=== PATIENT | female | born 1940 | race Caucasian/White ===

== ENCOUNTER 2017-11-14 13:31 | Emergency (ER) | payer MEDICARE ==
--- NOTE | 2017-11-14 14:43 | EDM.PDOC ---
ED HPI GENERAL MEDICAL PROBLEM - General Chief Complaint: General Stated Complaint: RIGHT GREAT TOE INFECTION?? Time Seen by Provider: 11/14/17 13:45 Source of Information: Reports: Patient, Family (daughter) History Limitations: Reports: No Limitations - History of Present Illness INITIAL COMMENTS - FREE TEXT/NARRATIVE: 77-year-old female had recent right great toenail removed by . She is a type II diabetic. She and her daughter concerned that she may possibly getting a infection in the great toe. She denies any fever or chills, no nausea or vomiting. He noticed some redness around the toe and mild drainage. She has not been soaking this in any warm water Epson salt or covering the area. She is nontoxic appearing. She has an appointment for lab draws on Thursday at the [facility]. Onset: Gradual Onset Date: 11/13/17 Duration: Day(s): Location: Reports: Lower Extremity, Right (Right great toe) Quality: Reports: Ache Improves with: Reports: None Associated Symptoms: Reports: No Other Symptoms Right 1-Hallux Pain Score (Numeric/FACES): 6 - Related Data Allergies Allergy/AdvReac Type Severity Reaction Status Date / Time codeine Allergy Cannot Verified 11/14/17 14:01 Remember erythromycin base Allergy Rash Verified 11/14/17 14:01 [Erythromycin Base] latex Allergy Rash Verified 11/14/17 14:01 Penicillins Allergy Cannot Verified 11/14/17 14:01 Remember Sulfa (Sulfonamide Allergy Abdominal Verified 11/14/17 14:01 Antibiotics) Pain Dogs & Cats (Pet Dander) Allergy Sneezing Uncoded 07/13/13 14:58 Home Meds: Home Meds Gabapentin [Neurontin] 300 mg PO TID 11/14/17 [History] Glimepiride 1 mg PO WITHBREAKFAST 11/14/17 [History] Levothyroxine 150 mcg PO ACBREAKFAST 11/14/17 [History] Past Medical History HEENT History: Reports: Cataract Cardiovascular History: Reports: Hypertension 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 (See Below) 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 SANITATION MANAGER History: cyst on R ovary Neurological History: Reports: Neuropathy, Diabetic, Neuropathy, Peripheral, Other (See Below) Other Neuro History: Fibromyalgia Endocrine/Metabolic History: Reports: Diabetes, Type II - Infectious Disease History Infectious Disease History: Reports: C-Difficile, Chicken Pox, Measles, Rubella - Past Surgical History GI Surgical History: Reports: Cholecystectomy Social & Family History - Tobacco Use Smoking Status *Q: Former Smoker Used Tobacco, but Quit: Yes Month/Year Tobacco Last Used: 1983 Second Hand Smoke Exposure: Yes - Caffeine Use Caffeine Use: Reports: Coffee, Soda - Recreational Drug Use Recreational Drug Use: No ED ROS GENERAL - Review of Systems Review Of Systems: See Below Constitutional: Denies: Fever, Chills HEENT: Reports: Glasses Respiratory: Reports: No Symptoms Cardiovascular: Reports: No Symptoms Endocrine: Reports: High Glucose GI/Abdominal: Reports: Other (Treatment for C. difficile). Denies: Abdominal Pain : Reports: No Symptoms Musculoskeletal: Reports: No Symptoms Skin: Reports: No Symptoms Psychiatric: Reports: No Symptoms Hematologic/Lymphatic: Reports: No Symptoms Immunologic: Reports: No Symptoms ED EXAM, GENERAL - Physical Exam Exam: See Below Extremities: Other (Right lower extremity examination shows the right great toenail was removed. There is some slough over the nailbed area and slight reaction around the skin. No distinct swelling or redness around the whole toe itself. No evidence of deep infection.) Neurological: Alert, Oriented Psychiatric: Depressed Mood Skin Exam: Warm, Dry, Intact, Normal Color, No Rash Course - Vital Signs Last Recorded V/S: Last Vital Signs Temp 98.2 F 11/14/17 13:54 Pulse 77 11/14/17 13:54 Resp 16 11/14/17 13:54 BP 125/68 11/14/17 13:54 Pulse Ox 94 L 11/14/17 13:54 - Orders/Labs/Meds Orders: Active Orders 24 hr Category Date Time Status C-REACTIVE PROTEIN [CHEM] Stat Lab 11/14/17 14:38 Received CBC WITH AUTO DIFF [HEME] Stat Lab 11/14/17 14:38 Results CULTURE WOUND [RM] Stat Lab 11/14/17 14:10 Received SEDIMENTATION RATE MANUAL [HEME] Stat Lab 11/14/17 14:38 Results Labs: Laboratory Tests 11/14/17 Range/Units 14:38 WBC 8.71 (5.00-10.00) 10^3/uL RBC 4.75 (3.80-5.50) 10^6/uL Hgb 15.6 (12.0-16.0) g/dL Hct 45.6 (37.0-47.0) % MCV 96.0 H (82.0-92.0) fL MCH 32.8 H (27.0-31.0) pg MCHC 34.2 (32.0-36.0) g/dL RDW 13.7 (11.5-14.5) % Plt Count 190 (150-400) 10^3/uL MPV 11.1 H (7.4-10.4) fL Immature Gran % (Auto) 0.2 (0.0-5.0) % Neut % (Auto) 74.0 H (50.0-70.0) % Lymph % (Auto) 17.3 L (20.0-40.0) % [place] % (Auto) 5.3 (2.0-8.0) % Eos % (Auto) 3.0 (1.0-3.0) % Baso % (Auto) 0.2 (0.0-1.0) % Immature Gran # (Auto) 0.02 (0.00-0.50) 10^3/uL Neut # (Auto) 6.44 (2.50-7.00) 10^3/uL Lymph # (Auto) 1.51 (1.00-4.00) 10^3/uL [place] # (Auto) 0.46 (0.10-0.80) 10^3/uL Eos # (Auto) 0.26 (0.10-0.30) 10^3/uL Baso # (Auto) 0.02 (0.00-0.10) 10^3/uL Departure - Departure Time of Disposition: 15:15 Disposition: Home, Self-Care 01 Condition: Fair Clinical Impression: Ingrown nail of great toe of right foot - Discharge Information Instructions: [place] Referrals: Clarence Nguyễn MD [Primary Care Provider] - Forms: ED Department Discharge - My Orders Last 24 Hours: My Active Orders 11/14/17 14:10 CULTURE WOUND [RM] Stat 11/14/17 14:38 C-REACTIVE PROTEIN [CHEM] Stat CBC WITH AUTO DIFF [HEME] Stat SEDIMENTATION RATE MANUAL [HEME] Stat - Assessment/Plan Last 24 Hours: My Active Orders 11/14/17 14:10 CULTURE WOUND [RM] Stat 11/14/17 14:38 C-REACTIVE PROTEIN [CHEM] Stat CBC WITH AUTO DIFF [HEME] Stat SEDIMENTATION RATE MANUAL [HEME] Stat Assessment:: History of ingrown nail right great toe, status post nail removal Type II diabetic Plan: 1. Right great toe was cleaned with gauze and Betadine prep around the nail. 2. Culture was taken for Gram stain, anaerobic, aerobic. 3. Light dressing was applied over the great toe 4. Encourage warm water Epsom salts 3 times a day over the weekend. 5 follow-up with Dr. Rodrigez on Thursday.
== END 2017-11-14 15:30 | disposition home or self-care (01) ==
LOC: KA.ED 13:31
DX: L60.0 Ingrowing nail (principal); I10 Essential (primary) hypertension; E11.40 Type 2 diabetes mellitus with diabetic neuropathy, unspecified; Z88.0 Allergy status to penicillin; Z88.5 Allergy status to narcotic agent; Z91.040 Latex allergy status; Z88.2 Allergy status to sulfonamides; Z87.891 Personal history of nicotine dependence
CPT/HCPCS: 36415; 85025; 85651; 86140; 87070; 87205; 99283

== ENCOUNTER 2018-12-26 13:12 | Emergency (ER) | payer MEDICARE ==
--- NOTE | 2018-12-26 15:11 | CR ---
[id number] RAD/RAD Lumbar Spine 2-3V EXAM: AP AND LATERAL LUMBAR SPINE. INDICATION: Trauma COMPARISON: Correlation is made with the CAT scan of July 13, 2013 FINDINGS: There is no fracture or subluxation There are moderate degenerative changes. 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 IMPRESSION: NO FRACTURE OR SUBLUXATION. Gurjit Larios MD 12/26/18 [id number] Thank you for allowing us to participate in the care of your patient.
--- NOTE | 2018-12-26 15:16 | CR ---
[id number] RAD/RAD Knee Left 1-2V EXAM: RAD Knee Left 1-2V CLINICAL DATA: TRAUMA COMPARISON: NO PREVIOUS SIMILAR EXAM IS AVAILABLE. FINDINGS: No fracture or dislocation is seen. There is no radiopaque foreign body in the soft tissues. There is no air in the soft tissues. There is no cortical thickening or periosteal reaction either. IMPRESSION: NEGATIVE PLAIN FILM EXAM. Gurjit Larios MD 12/26/18 [id number] Thank you for allowing us to participate in the care of your patient.
--- NOTE | 2018-12-26 15:17 | CR ---
[id number] RAD/RAD Pelvis W Left Lateral Hip Exam: RAD Pelvis W Left Lateral Hip Clinical Data: TRAUMA COMPARISON: NO PREVIOUS SIMILAR EXAM IS AVAILABLE FINDINGS: There appears to be an impacted left femoral neck fracture This could be confirmed with MRI or CT if needed IMPRESSION: APPEARANCE OF IMPACTED FRACTURE OF LEFT FEMORAL NECK Gurjit Larios MD 12/26/18 [id number] Thank you for allowing us to participate in the care of your patient.
--- NOTE | 2018-12-26 15:39 | EDM.PDOC ---
ED HPI GENERAL MEDICAL PROBLEM - General Chief Complaint: General Stated Complaint: low back and left leg pain Time Seen by Provider: 12/26/18 13:30 Source of Information: Reports: Patient, Family History Limitations: Reports: No Limitations - History of Present Illness INITIAL COMMENTS - FREE TEXT/NARRATIVE: 78-year-old female presents emergency room brought in by [place] [facility] for evaluation of low back and left hip pain. Patient states she went to the bathroom this morning and was going back to her bedroom when she tripped and fell landing on her left hip. She complained of left hip and low back pain. She was able to get back to her bedroom. She states that she is supposed to use a walker to help her for her balance but only uses it intermittently. She has a history of chronic low back pain with spinal cord stimulator. She is taken several falls in the past. Onset: Today Onset Date: 12/26/18 Onset Time: 09:30 Duration: Hour(s):, Constant Location: Reports: Back, Lower Extremity, Left Quality: Reports: Ache Severity: Moderate Improves with: Reports: Rest Worsens with: Reports: None, Movement Associated Symptoms: Reports: No Other Symptoms Left Leg Pain Score (Numeric/FACES): 5 - Related Data Allergies Allergy/AdvReac Type Severity Reaction Status Date / Time codeine Allergy Cannot Verified 12/26/18 13:30 Remember erythromycin base Allergy Rash Verified 12/26/18 13:30 [Erythromycin Base] latex Allergy Rash Verified 12/26/18 13:30 Penicillins Allergy Cannot Verified 12/26/18 13:30 Remember Sulfa (Sulfonamide Allergy Abdominal Verified 12/26/18 13:30 Antibiotics) Pain Dogs & Cats (Pet Dander) Allergy Sneezing Uncoded 12/26/18 13:30 Home Meds: Home Meds Gabapentin [Neurontin] 300 mg PO TID 11/14/17 [History] Acetaminophen [Acetaminophen Extra Strength] 500 - 1,000 mg PO Q4H PRN 01/29/18 [History] Aspirin [Halfprin] 81 mg PO DAILY 01/29/18 [History] Glimepiride [Amaryl] 2 mg PO DAILY 01/29/18 [History] Sertraline [Zoloft] 50 mg PO DAILY 01/29/18 [History] Levothyroxine [Synthroid] 100 mcg PO ACBREAKFAST 12/26/18 [History] Past Medical History HEENT History: Reports: Cataract, Impaired Vision Cardiovascular History: Reports: CAD, High Cholesterol, Hypertension Respiratory History: Reports: None Gastrointestinal History: Reports: GERD Genitourinary History: Reports: None 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 (See Below) 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 MACHINE 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 History: cyst on R ovary Musculoskeletal History: Reports: Arthritis Neurological History: Reports: Neuropathy, Diabetic, Neuropathy, Peripheral, Other (See Below) Other Neuro History: Fibromyalgia Psychiatric History: Reports: Anxiety, Depression Endocrine/Metabolic History: Reports: Diabetes, Type II, Hypothyroidism, Obesity /BMI 30+ Hematologic History: Reports: Anesthesia Reaction - Infectious Disease History Infectious Disease History: Reports: C-Difficile, Chicken Pox, Measles, Mumps, Rubella - Past Surgical History Head Surgeries/Procedures: Reports: None HEENT Surgical History: Reports: Adenoidectomy, Cataract Surgery, Oral Surgery, Tonsillectomy Cardiovascular Surgical History: Reports: None Respiratory Surgical History: Reports: None GI Surgical History: Reports: Cholecystectomy, Colonoscopy Female Surgical History: Reports: Hysterectomy Endocrine Surgical History: Reports: None Neurological Surgical History: Reports: None Musculoskeletal Surgical History: Reports: None Dermatological Surgical History: Reports: None Social & Family History - Family History Family Medical History: Noncontributory - Tobacco Use Smoking Status *Q: Former Smoker Used Tobacco, but Quit: Yes Month/Year Tobacco Last Used: quit 1983 - Caffeine Use Caffeine Use: Reports: Coffee, Soda - Recreational Drug Use Recreational Drug Use: No Review of Systems - Review of Systems Review Of Systems: See Below Constitutional: Reports: No Symptoms Eyes: Reports: No Symptoms Ears: Reports: Dizziness (Chronic) Nose: Reports: No Symptoms Mouth/Throat: Reports: No Symptoms Respiratory: Reports: Shortness of Breath (Chronic shortness of breath with history of COPD) Cardiovascular: Reports: No Symptoms GI/Abdominal: Reports: No Symptoms Genitourinary: Reports: No Symptoms Musculoskeletal: Reports: Back Pain (Chronic low back pain with spinal cord stimulator), Joint Pain (Left hip) Skin: Reports: No Symptoms Neurological: Reports: Dizziness Psychiatric: Reports: Depression ED EXAM, GENERAL - Physical Exam Exam: See Below Exam Limited By: No Limitations General Appearance: Alert, WD/WN, No Apparent Distress Eye Exam: Bilateral Eye: EOMI Ears: Normal Canal Nose: Normal Inspection Throat/Mouth: Normal Voice, No Airway Compromise Head: Atraumatic Neck: Normal Inspection, Supple Respiratory/Chest: No Respiratory Distress, Lungs Clear Cardiovascular: Regular Rate, Rhythm GI/Abdominal: Soft, Non-Tender Back Exam: Normal Inspection. No: Paraspinal Tenderness, Vertebral Tenderness Extremities: Normal Inspection, Other (Mild tenderness over the left knee anteriorly. She is able extend the knee. No deficit in the quadriceps or patellar tendon noted. Knee stable to varus stress. She has a positive will sign left hip there is no shortening or external rotation. Pulses are 1+ distally intact sensation to light touch. Right hip exam shows normal hip range of motion with no pain or discomfort knee and ankle motion are normal) Neurological: Alert, Oriented, No Motor/Sensory Deficits Psychiatric: Depressed Mood Skin Exam: Warm, Dry, Intact, Normal Color, No Rash Lymphatic: No Adenopathy Course - Vital Signs Last Recorded V/S: Last Vital Signs Temp 96.9 F 12/26/18 13:17 Pulse 69 12/26/18 15:15 Resp 20 12/26/18 15:15 BP 168/76 H 12/26/18 15:15 Pulse Ox 93 L 12/26/18 15:15 - Orders/Labs/Meds Orders: Active Orders 24 hr Category Date Time Status Lynch Catheter Insertion [Insert Urinary Catheter] [OM. Care 12/26/18 17:15 Ordered PC] Q24H Urinary Catheter Assessment [RC] ASDIRECTED Care 12/26/18 17:05 Active Sodium Chloride 0.9% [Normal Saline] 1,000 ml Med 12/26/18 16:30 Active IV ASDIRECTED Medication Orders Sodium Chloride (Normal Saline) 1,000 mls @ 50 mls/hr IV ASDIRECTED ALY Last Admin: 12/26/18 17:08 Dose: 50 mls/hr Meds: Medications Generic Name Dose Route Start Last Admin Trade Name Freq PRN Reason Stop Dose Admin Sodium Chloride 1,000 mls @ 50 mls/hr 12/26/18 16:30 12/26/18 17:08 Normal Saline IV 50 mls/hr ASDIRECTED ALY Administration Discontinued Medications Generic Name Dose Route Start Last Admin Trade Name Freq PRN Reason Stop Dose Admin Morphine Sulfate 2 mg 12/26/18 16:23 12/26/18 17:09 Morphine IVPUSH 12/26/18 16:24 2 mg ONETIME ONE Administration Ondansetron HCl 4 mg 12/26/18 16:24 12/26/18 16:45 Zofran IVPUSH 12/26/18 16:25 4 mg ONETIME ONE Administration - Radiology Interpretation Free Text/Narrative:: X-ray pelvis with left lateral hip Findings: There appears to be an impacted left femoral neck fracture. Sclerae be confirmed with MRI or CT if needed Impression: Appearance of an impacted fracture left femoral neck. X-ray 2 views left knee Findings: No fracture dislocation is seen is no radiopaque foreign body in the soft tissues there is no air in the soft tissues is no cortical thickening or periosteal reaction. 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 Impression: No fracture or subluxation CT left hip without IV contrast Findings: Acute impacted left femoral neck fracture seen There is minimal valgus angulation Impression: Acute impacted subcapital left hip fracture Departure - Departure Time of Disposition: 18:30 Disposition: DC/Tfer to [facility] 02 Condition: Good Clinical Impression: Subcapital fracture of left hip Qualifiers: Encounter type: initial encounter Fracture type: closed Qualified Code(s): S72.012A - Unspecified intracapsular fracture of left femur, initial encounter for closed fracture - Discharge Information Instructions: Hip Fracture Referrals: Arthur Louie NP [Primary Care Provider] - Forms: ED Department Discharge, Interfacility Transfer EMTMICHEL - My Orders Last 24 Hours: My Active Orders 12/26/18 16:30 Sodium Chloride 0.9% [Normal Saline] 1,000 ml IV ASDIRECTED 12/26/18 17:05 Urinary Catheter Assessment [RC] ASDIRECTED 12/26/18 17:15 Lynch Catheter Insertion [Insert Urinary Catheter] [OM.PC] Q24H - Assessment/Plan Last 24 Hours: My Active Orders 12/26/18 16:30 Sodium Chloride 0.9% [Normal Saline] 1,000 ml IV ASDIRECTED 12/26/18 17:05 Urinary Catheter Assessment [RC] ASDIRECTED 12/26/18 17:15 Lynch Catheter Insertion [Insert Urinary Catheter] [OM.PC] Q24H Assessment:: 1. Impacted femoral neck fracture left 2. Degenerative changes lumbar spine 3. left knee contusion Plan: 1. Left subcapital hip fracture 2. Transfer to [facility]
--- NOTE | 2018-12-26 15:59 | CT ---
[id number] CT/CT Hip Left WO IV Exam: CT Hip Left WO IV Clinical Data: LEFT HIP FRACTURE COMPARISON: CORRELATION IS MADE WITH THE RECENT PLAIN FILMS FINDINGS: An acute impacted left femoral neck fracture is seen This is identified on image [id number], series 5 There is minimal valgus angulation IMPRESSION: ACUTE IMPACTED SUBCAPITAL LEFT HIP FRACTURE Gurjit Larios MD 12/26/18 [id number] Thank you for allowing us to participate in the care of your patient.
[2018-12-26] MEDS: Ondansetron 4 MG/2 ML SDV IVPUSH ONE (16:45)
[2018-12-26] MEDS: Sodium Chloride 0.9% 1,000 ML IV SCH (17:08)
[2018-12-26] MEDS: Morphine 2 MG/ML Syringe IVPUSH ONE (17:09)
== END 2018-12-26 17:30 ==
LOC: KA.ED 13:12
DX: S72.012A Unspecified intracapsular fracture of left femur, initial encounter for closed fracture (principal); I10 Essential (primary) hypertension; E78.00 Pure hypercholesterolemia, unspecified; E11.9 Type 2 diabetes mellitus without complications; E03.9 Hypothyroidism, unspecified; F41.9 Anxiety disorder, unspecified; F32.9 Major depressive disorder, single episode, unspecified; Z88.5 Allergy status to narcotic agent; Z88.1 Allergy status to other antibiotic agents; Z91.040 Latex allergy status; Z88.0 Allergy status to penicillin; Z88.2 Allergy status to sulfonamides; Z91.048 Other nonmedicinal substance allergy status; Z79.82 Long term (current) use of aspirin; Z79.899 Other long term (current) drug therapy; Z87.891 Personal history of nicotine dependence; W01.0XXA Fall on same level from slipping, tripping and stumbling without subsequent striking against object, initial encounter; Y92.002 Bathroom of unspecified non-institutional (private) residence as the place of occurrence of the external cause
CPT/HCPCS: 51702; 72100; 73560-LT; 73700-LT; 99284; 99284-25; J2270; J2405; J7030

== ENCOUNTER 2019-10-31 18:30 | Emergency (ER) | payer MEDICARE ==
--- NOTE | 2019-10-31 18:50 | EDM.PDOC ---
ED HPI GENERAL MEDICAL PROBLEM - General Chief Complaint: Respiratory Problem Stated Complaint: NOT FEELING WELL Time Seen by Provider: 10/31/19 18:30 Source of Information: Reports: Patient, EMS History Limitations: Reports: No Limitations - History of Present Illness INITIAL COMMENTS - FREE TEXT/NARRATIVE: Has been sequestered at home the majority of the time. Presented to the [facility] in [place] on the 26 October for her annual influenza immunization. She was only at the clinic with no other exposure. She awoke Thursday morning 27 October experiencing pressure in the lower abdomen loose stools with some cough. 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 Stating it does not flareup as much now as it used to. She states she has had low-grade fever running from 99 5 up to 100 but not above that. She has shortness of breath which she states is chronic and not worse than her usual issue although may be a little more cough. She denies chest pain She states she is able to taste but "everything tastes like she it" she states her smell is intact. She denies any body aches states she has normal urine output, may be a little less than usual. Denying any edema or difficulty with ambulation. Stated she called the clinic, [facility], late today, being advised to be seen in the emergency department. Onset: Gradual Onset Date: 10/28/19 Onset Time: 07:00 Duration: Day(s): Location: Reports: Chest, Abdomen Quality: Reports: Pressure Severity: Moderate Improves with: Reports: None Worsens with: Reports: Eating Associated Symptoms: Reports: Cough, Shortness of Breath (Chronic, not worsened.). Denies: Chest Pain - Related Data Allergies Allergy/AdvReac Type Severity Reaction Status Date / Time codeine Allergy Cannot Verified 10/31/19 18:51 Remember erythromycin base Allergy Rash Verified 10/31/19 18:51 [Erythromycin Base] latex Allergy Rash Verified 10/31/19 18:51 Penicillins Allergy Cannot Verified 10/31/19 18:51 Remember Sulfa (Sulfonamide Allergy Abdominal Verified 10/31/19 18:51 Antibiotics) Pain Dogs & Cats (Pet Dander) Allergy Sneezing Uncoded 10/31/19 18:51 Home Meds: Home Meds Gabapentin [Neurontin] 300 mg PO TID 11/14/17 [History] Acetaminophen [Acetaminophen Extra Strength] 500 - 1,000 mg PO Q4H PRN 01/29/18 [History] Aspirin [Halfprin] 81 mg PO DAILY 01/29/18 [History] Glimepiride [Amaryl] 2 mg PO DAILY 01/29/18 [History] Sertraline [Zoloft] 50 mg PO DAILY 01/29/18 [History] Levothyroxine [Synthroid] 100 mcg PO ACBREAKFAST 12/26/18 [History] Past Medical History HEENT History: Reports: Cataract, Impaired Vision Cardiovascular History: Reports: CAD, High Cholesterol, Hypertension Respiratory History: Reports: None Gastrointestinal History: Reports: GERD Genitourinary History: Reports: None [employer] History: Reports: Other (See Below) Other [employer]OR History: cyst on R ovary Musculoskeletal History: Reports: Arthritis Neurological History: Reports: Neuropathy, Diabetic, Neuropathy, Peripheral, Other (See Below) Other Neuro History: Fibromyalgia Psychiatric History: Reports: Anxiety, Depression Endocrine/Metabolic History: Reports: Diabetes, Type II, Hypothyroidism, Obesity/BMI 30+ Hematologic History: Reports: Anesthesia Reaction - Infectious Disease History Infectious Disease History: Reports: C-Difficile, Chicken Pox, Measles, Mumps, Rubella - Past Surgical History Head Surgeries/Procedures: Reports: None HEENT Surgical History: Reports: Adenoidectomy, Cataract Surgery, Oral Surgery, Tonsillectomy Cardiovascular Surgical History: Reports: None Respiratory Surgical History: Reports: None GI Surgical History: Reports: Cholecystectomy, Colonoscopy Female Surgical History: Reports: Hysterectomy Endocrine Surgical History: Reports: None Neurological Surgical History: Reports: None Musculoskeletal Surgical History: Reports: None Dermatological Surgical History: Reports: None Social & Family History - Family History Family Medical History: Noncontributory - Caffeine Use Caffeine Use: Reports: Coffee, Soda ED ROS GENERAL - Review of Systems Review Of Systems: Comprehensive ROS is negative, except as noted in HPI. ED EXAM, GENERAL - Physical Exam Exam: See Below Free Text/Narrative:: Alert oriented x3 speaking in full sentences with no respiratory distress. There is no cyanosis nor pallor noted. Raub moist mucous membranes Neck soft supple no lymphadenopathy no JVD I do not appreciate carotid bruit. Thorax is fine rhonchi crackles on the right side with no wheezes no crackles superiorly nor to the left. Cardiac is S1 is 2 I do not appreciate any murmur. Abdomen is soft rotund, no hepatosplenomegaly. There is mild pressure over the urinary bladder. rectal is deferred. There is +2 edema to the lower extremities. No pain is complained of, no shortness of breath and no chest pain to motion or palpation, no extremity pain. Course - Vital Signs Last Recorded V/S: Last Vital Signs Temp 37.0 C 10/31/19 18:46 Pulse 78 10/31/19 20:08 Resp 16 10/31/19 20:08 BP 159/71 H 10/31/19 20:08 Pulse Ox 92 L 10/31/19 20:08 - Orders/Labs/Meds Orders: Active Orders 24 hr Category Date Time Status Chest 2V [CR] Stat Exams 10/31/19 18:51 Stop Req CULTURE BLOOD [BC] Stat Lab 10/31/19 19:00 Received CULTURE BLOOD [BC] Stat Lab 10/31/19 19:15 Received Blood Culture x2 Reflex Set [OM.PC] Stat Oth 10/31/19 18:53 Ordered Labs: Laboratory Tests 10/31/19 10/31/19 10/31/19 Range/Units 19:00 19:00 19:00 WBC 11.62 H (5.00-10.00) 10^3/uL RBC 5.03 (3.80-5.50) 10^6/uL Hgb 15.7 D (12.0-16.0) g/dL Hct 47.3 H (37.0-47.0) % MCV 94.0 H D (82.0-92.0) fL MCH 31.2 H (27.0-31.0) pg MCHC 33.2 (32.0-36.0) g/dL RDW 13.0 (11.5-14.5) % Plt Count 219 (150-400) 10^3/uL MPV 10.5 H (7.4-10.4) fL Immature Gran % (Auto) 0.2 (0.0-5.0) % Neut % (Auto) 84.0 H (50.0-70.0) % Lymph % (Auto) 7.0 L (20.0-40.0) % [place] % (Auto) 7.0 (2.0-8.0) % Eos % (Auto) 1.5 (1.0-3.0) % Baso % (Auto) 0.3 (0.0-1.0) % Neut # (Auto) 9.78 H (2.50-7.00) 10^3/uL Lymph # (Auto) 0.81 L (1.00-4.00) 10^3/uL [place] # (Auto) 0.81 H (0.10-0.80) 10^3/uL Eos # (Auto) 0.17 (0.10-0.30) 10^3/uL Baso # (Auto) 0.03 (0.00-0.10) 10^3/uL Immature Gran # (Auto) 0.02 (0.00-0.50) 10^3/uL Sodium 137 (136-145) mmol/L Potassium 3.3 (3.3-5.3) mmol/L Chloride 99 (98-115) mmol/L Carbon Dioxide 26.7 (21.0-32.0) mmol/L Anion Gap 14.6 (5-15) mmol/L BUN 11 (6-25) mg/dL Creatinine 0.85 (0.51-1.17) mg/dL Est Cr Clr Drug Dosing 45.12 mL/min Estimated GFR (MDRD) > 60 mL/min Glucose 144 H (75 - 99) mg/dL Lactic Acid 1.6 (0.4-2.0) mmol/L Calcium 8.1 L (8.7-10.3) mg/dL Total Bilirubin 0.5 (0.2-1.0) mg/dL AST 25 (15-37) U/L ALT 26 (12-78) U/L Alkaline Phosphatase 50 (46-116) IU/L Total Protein 7.5 (6.4-8.2) g/dL Albumin 3.18 (3.00-4.80) g/dL - Radiology Interpretation Free Text/Narrative:: Stranding in the right base with mild blunting costophrenic angles. Over read pending - Re-Assessments/Exams Free Text/Narrative Re-Assessment/Exam: 10/31/19 20:55 Discuss the aspects of the sinus drainage if not improving, or worsening, needs to be treated with antibiotic. We offered COVID 19 testing which she declines. She states that she has been eating Meals on Wheels daily and is anxious to be discharged home at this time so she can have something to eat. This story is somewhat conflicting from what she originally said as well as her daughter who says she has no intake and is hesitant to take her home. When Marian he is told of her daughter's concern, she states "she is just bossy", I am ready to go home. When again discussing COVID-19 she questions why the immediate test is not being run, to which I replied that is only for people having procedures or being admitted. She replies that they had been told, it would be a quick 25-minute test done here. We again discuss treatment options which she declines as well as further testing and is anxious to be discharged home and will follow-up with her clinic as discussed. Departure - Departure Time of Disposition: :19 Disposition: Home, Self-Care 01 Condition: Good Clinical Impression: Malaise, Clostridium difficile carrier - Discharge Information *PRESCRIPTION DRUG MONITORING PROGRAM REVIEWED*: Not Applicable *COPY OF PRESCRIPTION DRUG MONITORING REPORT IN PATIENT JOHNNY: Not Applicable Instructions: Weakness, [id number] Referrals: PCP,Unknown [Primary Care Provider] - Forms: ED Department Discharge Additional Instructions: A lengthy discussion on the opportunity for antibiotic for sinus drainage which she declines secondary of increased risk of a C. difficile flare-up with antibiotic. She declines COVID-19 testing which I feel is appropriate as she has had no known exposure. You need to continue all your medications as directed. You need to call your clinic Thursday or to advise them of how you are feeling. The likelihood of the sinus drainage/infection resolving is equal to that of it getting worse at which time you would need to have antibiotic therapy. Your diet should consist of easy to digest foods that you have been successful with in the past. If you do not feel that this is stabilizing contact the clinic sooner than later. This is possible that it is your body reacting with an immune response to the influenza immunization you received . Please limit your exposures and travel until you are feeling better. Sepsis Event Note (ED) - Focused Exam Vital Signs: Vital Signs Temp Pulse Resp BP Pulse Ox 10/31/19 20:08 78 16 159/71 H 92 L 10/31/19 19:04 83 16 160/86 H 90 L 10/31/19 18:46 37.0 C 82 16 154/78 H 91 L 10/31/19 18:45 80 18 155/108 H 90 L - Problem List & Annotations (1) Malaise SNOMED Code(s): 067781752 Code(s): R53.81 - OTHER MALAISE Status: Acute Priority: High Current Visit: Yes (2) Clostridium difficile carrier SNOMED Code(s): 13030878 Code(s): Z22.1 - CARRIER OF OTHER INTESTINAL INFECTIOUS DISEASES Status: Chronic Priority: Medium Current Visit: Yes (3) Loose stools SNOMED Code(s): 689074807 Code(s): R19.5 - OTHER FECAL ABNORMALITIES Status: Chronic Priority: Medium Current Visit: Yes (4) Cough SNOMED Code(s): 63988526 Code(s): R05 - COUGH Status: Acute Priority: High Current Visit: Yes (5) Sinus drainage SNOMED Code(s): 487079055 Code(s): J34.89 - OTHER SPECIFIED DISORDERS OF NOSE AND NASAL SINUSES Status: Acute Priority: Medium Current Visit: Yes - Problem List Review Problem List Initiated/Reviewed/Updated: Yes - My Orders Last 24 Hours: My Active Orders 10/31/19 18:51 Chest 2V [CR] Stat 10/31/19 18:53 Blood Culture x2 Reflex Set [OM.PC] Stat 10/31/19 19:00 CULTURE BLOOD [BC] Stat 10/31/19 19:15 CULTURE BLOOD [BC] Stat - Assessment/Plan Last 24 Hours: My Active Orders 10/31/19 18:51 Chest 2V [CR] Stat 10/31/19 18:53 Blood Culture x2 Reflex Set [OM.PC] Stat 10/31/19 19:00 CULTURE BLOOD [BC] Stat 10/31/19 19:15 CULTURE BLOOD [BC] Stat Plan: A lengthy discussion on the opportunity for antibiotic for sinus drainage which she declines secondary of increased risk of a C. difficile flare-up with antibiotic. She declines COVID-19 testing which I feel is appropriate as she has had no known exposure. You need to continue all your medications as directed. You need to call your clinic Thursday or to advise them of how you are feeling. The likelihood of the sinus drainage/infection resolving is equal to that of it getting worse at which time you would need to have antibiotic therapy. Your diet should consist of easy to digest foods that you have been successful with in the past. If you do not feel that this is stabilizing contact the clinic sooner than later. This is possible that it is your body reacting with an immune response to the influenza immunization you received . Please limit your exposures and travel until you are feeling better.
[2019-10-31 19:50] LABS: ANION GAP 14.6 mmol/L (5-15); CHLORIDE,CL 99 mmol/L (98-115); SODIUM,NA 137 mmol/L (136-145)
--- NOTE | 2019-10-31 19:52 | CR ---
[id number] RAD/RAD Chest PA or AP 1V EXAM: SINGLE VIEW CHEST. INDICATION: COUGH COMPARISON: CORRELATION IS MADE WITH JULY 19, 2010 FINDINGS: The lungs are clear The spinal stimulator is seen The cardiac silhouette is unchanged IMPRESSION: NO PNEUMONIA OR EDEMA Gurjit Larios MD 10/31/191950 Thank you for allowing us to participate in the care of your patient.
== END 2019-10-31 20:28 | disposition home or self-care (01) ==
LOC: KA.ED 18:30
DX: Z22.1 Carrier of other intestinal infectious diseases (principal); R53.81 Other malaise; I10 Essential (primary) hypertension; E11.42 Type 2 diabetes mellitus with diabetic polyneuropathy; I25.10 Atherosclerotic heart disease of native coronary artery without angina pectoris; F41.9 Anxiety disorder, unspecified; F32.9 Major depressive disorder, single episode, unspecified; E66.9 Obesity, unspecified; Z90.49 Acquired absence of other specified parts of digestive tract; Z90.710 Acquired absence of both cervix and uterus; Z88.2 Allergy status to sulfonamides; Z88.0 Allergy status to penicillin; Z88.1 Allergy status to other antibiotic agents; Z88.5 Allergy status to narcotic agent; Z91.09 Other allergy status, other than to drugs and biological substances; Z79.82 Long term (current) use of aspirin; Z79.899 Other long term (current) drug therapy
CPT/HCPCS: 36415; 71045; 80053; 83605; 85025; 87040; 99284; 99284-25

== ENCOUNTER 2022-08-26 07:31 | Inpatient (IN) | payer MEDICARE ==
[2022-08-26] MEDS ORDERED: Acetaminophen 500 MG Tab PO PRN (10:21)
[2022-08-26] MEDS ORDERED: Losartan 25 MG Tab PO PRN (10:21)
[2022-08-26] MEDS ORDERED: Potassium Chloride 10 MEQ Tab.ER PO ONE (13:00)
[2022-08-26] MEDS ORDERED: Magnesium Oxide 500 MG Tab PO ONE (16:00)
[2022-08-26] MEDS: Melatonin 3 MG Tab PO SCH (21:25)
[2022-08-26] MEDS: Magnesium Oxide 500 MG Tab PO SCH (21:25)
[2022-08-26] MEDS: Gabapentin 300 MG Cap PO SCH (21:25)
[2022-08-26] MEDS: Losartan 25 MG Tab PO SCH (21:28)
[2022-08-27] MEDS: Levothyroxine 100 MCG Tab PO SCH ×2 (05:58→06:41)
[2022-08-27] MEDS: Levothyroxine 25 MCG Tab PO SCH ×2 (05:59→06:41)
[2022-08-27] MEDS: Aspirin 81 MG Tab.EC PO SCH (08:07)
[2022-08-27] MEDS: Glimepiride 2 MG Tab PO SCH (08:07)
[2022-08-27] MEDS: Magnesium Oxide 500 MG Tab PO SCH ×2 (08:07→20:32)
[2022-08-27] MEDS: Sertraline 50 MG Tab PO SCH (08:07)
[2022-08-27] MEDS: Losartan 25 MG Tab PO SCH (20:31)
[2022-08-27] MEDS: Melatonin 3 MG Tab PO SCH (20:32)
[2022-08-27] MEDS: Gabapentin 300 MG Cap PO SCH (20:33)
[2022-08-28] MEDS: Levothyroxine 25 MCG Tab PO SCH (06:30)
[2022-08-28] MEDS: Levothyroxine 100 MCG Tab PO SCH (06:30)
[2022-08-28] MEDS: Glimepiride 2 MG Tab PO SCH (08:02)
[2022-08-28] MEDS: Magnesium Oxide 500 MG Tab PO SCH ×2 (08:02→21:20)
[2022-08-28] MEDS: Sertraline 50 MG Tab PO SCH (08:03)
[2022-08-28] MEDS: Aspirin 81 MG Tab.EC PO SCH (08:03)
[2022-08-28] MEDS ORDERED: Sennosides/Docusate Sodium 50-8.6 MG Tab PO PRN (09:11)
[2022-08-28] MEDS ORDERED: Losartan 25 MG Tab PO SCH (21:00)
[2022-08-28] MEDS: Gabapentin 300 MG Cap PO SCH (21:20)
[2022-08-28] MEDS: Melatonin 3 MG Tab PO SCH (21:20)
[2022-08-29] MEDS: Levothyroxine 25 MCG Tab PO SCH ×2 (05:41→06:30)
[2022-08-29] MEDS: Levothyroxine 100 MCG Tab PO SCH ×2 (05:41→06:30)
[2022-08-29 07:20] LABS: BASOPHILS ABSOLUTE AUTO 0.02 10^3/uL (0.00-0.10); BASOPHILS PERCENT AUTO 0.2 % (0.0-1.0); EOSINOPHILS ABSOLUTE AUTO 0.33 10^3/uL (0.10-0.30); EOSINOPHILS PERCENT AUTO 3.9 % (1.0-3.0); HEMATOCRIT 40.9 % (37.0-47.0); HEMOGLOBIN 13.4 g/dL (12.0-16.0); IMMATURE GRAN ABSOLUTE AUTO 0.01 10^3/uL (0.00-0.50); IMMATURE GRAN PERCENT AUTO 0.1 % (0.0-5.0); LYMPHOCYTES ABSOLUTE AUTO 2.26 10^3/uL (1.00-4.00); LYMPHOCYTES PERCENT AUTO 26.7 % (20.0-40.0); MEAN CORPUSCULAR HEMOGLOBIN 31.2 pg (27.0-31.0); MEAN CORPUSCULAR HGB CONC 32.8 g/dL (32.0-36.0); MEAN CORPUSCULAR VOLUME 95.3 fL (82.0-92.0); MONOCYTES ABSOLUTE AUTO 0.79 10^3/uL (0.10-0.80); MONOCYTES PERCENT AUTO 9.3 % (2.0-8.0); NEUTROPHILS ABSOLUTE AUTO 5.07 10^3/uL (2.50-7.00); NEUTROPHILS PERCENT AUTO 59.8 % (50.0-70.0); PLATELET COUNT,PLT 223 10^3/uL (150-400); RED BLOOD CELL COUNT 4.29 10^6/uL (3.80-5.50); RED CELL DISTRIBUTION WIDTH 13.2 % (11.5-14.5); WHITE BLOOD CELL COUNT,WBC 8.48 10^3/uL (5.00-10.00)
[2022-08-29 07:34] LABS: HEMOGLOBIN A1C 6.6 % (4.3-5.7)
[2022-08-29 07:41] LABS: ALBUMIN 2.29 g/dL (3.40-5.00); ANION GAP 9.8 mmol/L (5-15); BILIRUBIN TOTAL 0.4 mg/dL (0.2-1.0); CALCIUM 8.6 mg/dL (8.7-10.3); CARBON DIOXIDE,CO2 32.3 mmol/L (21.0-32.0); CREATININE 1.1 mg/dL (0.51-1.17); EST CRCL DRUG DOSING (CG) 40.46 mL/min; POTASSIUM,K 4.1 mmol/L (3.5-5.1); PROTEIN TOTAL,TP 5.7 g/dL (6.4-8.2)
[2022-08-29] MEDS: Sertraline 50 MG Tab PO SCH (08:21)
[2022-08-29] MEDS: Magnesium Oxide 500 MG Tab PO SCH (08:21)
[2022-08-29] MEDS: Aspirin 81 MG Tab.EC PO SCH (08:21)
[2022-08-29] MEDS: Glimepiride 2 MG Tab PO SCH (08:21)
[2022-08-30] MEDS ORDERED: Magnesium Oxide 500 MG Tab PO SCH (09:00)
== END 2022-08-29 13:05 | disposition home health service (06) | DRG 948 ==
LOC: KA.MS 10:21
PROVIDERS: ADMIT Nurse Practitioner Family; ATTEND Family Medicine
DX: R53.81 Other malaise (principal); R29.6 Repeated falls; E87.6 Hypokalemia; E83.42 Hypomagnesemia; I10 Essential (primary) hypertension; G31.9 Degenerative disease of nervous system, unspecified; R82.71 Bacteriuria; N83.209 Unspecified ovarian cyst, unspecified side; E78.5 Hyperlipidemia, unspecified; E03.9 Hypothyroidism, unspecified; M81.0 Age-related osteoporosis without current pathological fracture; F41.9 Anxiety disorder, unspecified; F32.A Depression, unspecified; Z96.649 Presence of unspecified artificial hip joint; E21.3 Hyperparathyroidism, unspecified; Z88.5 Allergy status to narcotic agent; Z88.0 Allergy status to penicillin; Z88.2 Allergy status to sulfonamides; Z91.09 Other allergy status, other than to drugs and biological substances; Z79.82 Long term (current) use of aspirin; I25.10 Atherosclerotic heart disease of native coronary artery without angina pectoris; Z79.899 Other long term (current) drug therapy; Z98.49 Cataract extraction status, unspecified eye; Z90.710 Acquired absence of both cervix and uterus; Z68.26 Body mass index [BMI] 26.0-26.9, adult
CPT/HCPCS: 36415; 80053; 83036; 83735; 85025; 97110-GO; 97110-GP; 97535-GO; A9270-GY

== ENCOUNTER 2023-01-07 16:15 | Emergency (ER) | payer MEDICAID, MEDICARE ==
[2023-01-07] MEDS ORDERED: Ondansetron 4 MG/2 ML SDV IVPUSH ONE (16:36)
[2023-01-07] MEDS ORDERED: Sodium Chloride 0.9% 1,000 ML IV ONE (16:36)
[2023-01-07 16:53] LABS: BASOPHILS ABSOLUTE AUTO 0.02 10^3/uL (0.00-0.10); BASOPHILS PERCENT AUTO 0.1 % (0.0-1.0); EOSINOPHILS ABSOLUTE AUTO 0.18 10^3/uL (0.10-0.30); EOSINOPHILS PERCENT AUTO 1.3 % (1.0-3.0); HEMATOCRIT 50.8 % (37.0-47.0); HEMOGLOBIN 16.8 g/dL (12.0-16.0); IMMATURE GRAN ABSOLUTE AUTO 0.05 10^3/uL (0.00-0.50); IMMATURE GRAN PERCENT AUTO 0.4 % (0.0-5.0); LYMPHOCYTES PERCENT AUTO 8.6 % (20.0-40.0); MEAN CORPUSCULAR HEMOGLOBIN 31.2 pg (27.0-31.0); MEAN CORPUSCULAR HGB CONC 33.1 g/dL (32.0-36.0); MEAN CORPUSCULAR VOLUME 94.2 fL (82.0-92.0); MEAN PLATELET VOLUME 11.2 fL (7.4-10.4); MONOCYTES ABSOLUTE AUTO 0.97 10^3/uL (0.10-0.80); NEUTROPHILS PERCENT AUTO 82.6 % (50.0-70.0); PLATELET COUNT,PLT 177 10^3/uL (150-400); RED BLOOD CELL COUNT 5.39 10^6/uL (3.80-5.50); RED CELL DISTRIBUTION WIDTH 12.3 % (11.5-14.5); WHITE BLOOD CELL COUNT,WBC 13.92 10^3/uL (5.00-10.00)
[2023-01-07 17:08] LABS: ALANINE AMINOTRANSFERASE,ALT 37 U/L (14-63); ALBUMIN 2.94 g/dL (3.40-5.00); ALKALINE PHOSPHATASE 51 U/L (46-116); ANION GAP 13.8 mmol/L (5-15); ASPARTATE AMNIOTRANSFERASE,AST 37 U/L (15-37); BILIRUBIN TOTAL 0.8 mg/dL (0.2-1.0); BLOOD UREA NITROGEN,BUN 20 mg/dL (7-18); CARBON DIOXIDE,CO2 32.7 mmol/L (21.0-32.0); CHLORIDE,CL 95 mmol/L (98-107); CREATININE 1.01 mg/dL (0.51-1.17); GLUCOSE RANDOM 208 mg/dL (70-140); POTASSIUM,K 3.5 mmol/L (3.5-5.1); PROTEIN TOTAL,TP 7.4 g/dL (6.4-8.2); SODIUM,NA 138 mmol/L (136-145)
[2023-01-07 17:09] LABS: ESTIMATED GFR 56 mL/min (>=60)
[2023-01-07] MEDS ORDERED: Ondansetron 4 MG Tab.DIS PO ONE (17:57)
== END 2023-01-07 18:44 | disposition home or self-care (01) ==
LOC: KA.ED 16:15
DX: U07.1 COVID-19 (principal); E86.0 Dehydration; I10 Essential (primary) hypertension; E78.00 Pure hypercholesterolemia, unspecified; I25.10 Atherosclerotic heart disease of native coronary artery without angina pectoris; K21.9 Gastro-esophageal reflux disease without esophagitis; E11.40 Type 2 diabetes mellitus with diabetic neuropathy, unspecified; E66.9 Obesity, unspecified; Z90.49 Acquired absence of other specified parts of digestive tract; Z90.710 Acquired absence of both cervix and uterus; Z79.82 Long term (current) use of aspirin; Z79.899 Other long term (current) drug therapy; Z88.2 Allergy status to sulfonamides; Z91.048 Other nonmedicinal substance allergy status; Z88.1 Allergy status to other antibiotic agents; Z91.040 Latex allergy status; Z88.0 Allergy status to penicillin; Z88.5 Allergy status to narcotic agent; Z88.8 Allergy status to other drugs, medicaments and biological substances
CPT/HCPCS: 36415; 71045; 80053; 83605; 85025; 96361; 96374; 99285; A9270; J2405; J7030

== ENCOUNTER 2024-02-28 13:38 | Emergency (ER) | payer MEDICARE | END 2024-02-28 14:35 | disposition home or self-care (01) | LOC: KA.ED 13:38 | DX: S92.511A Displaced fracture of proximal phalanx of right lesser toe(s), initial encounter for closed fracture (principal); S80.01XA Contusion of right knee, initial encounter; M17.11 Unilateral primary osteoarthritis, right knee; I10 Essential (primary) hypertension; I25.10 Atherosclerotic heart disease of native coronary artery without angina pectoris; E78.00 Pure hypercholesterolemia, unspecified; E66.9 Obesity, unspecified; E11.9 Type 2 diabetes mellitus without complications; E03.9 Hypothyroidism, unspecified; Z88.0 Allergy status to penicillin; Z88.1 Allergy status to other antibiotic agents; Z88.2 Allergy status to sulfonamides; Z91.048 Other nonmedicinal substance allergy status; Z88.8 Allergy status to other drugs, medicaments and biological substances; Z91.040 Latex allergy status; Z91.09 Other allergy status, other than to drugs and biological substances; Z79.82 Long term (current) use of aspirin; Z79.890 Hormone replacement therapy; Z79.899 Other long term (current) drug therapy; Z90.49 Acquired absence of other specified parts of digestive tract; Z90.710 Acquired absence of both cervix and uterus; W19.XXXA Unspecified fall, initial encounter | CPT/HCPCS: 73562-RT; 73660-RT; 99283 ==

== ENCOUNTER 2024-12-23 19:23 | Emergency (ER) | payer MEDICARE, MEDICAID ==
[2024-12-23] MEDS ORDERED: Sodium Chloride 0.9% 10 ML Syringe FLUSH PRN (19:28)
[2024-12-23 19:48] LABS: BASOPHILS ABSOLUTE AUTO 0.04 10^3/uL (0.00-0.10); BASOPHILS PERCENT AUTO 0.4 % (0.0-1.0); EOSINOPHILS ABSOLUTE AUTO 0.40 10^3/uL (0.10-0.30); EOSINOPHILS PERCENT AUTO 3.8 % (1.0-3.0); IMMATURE GRAN ABSOLUTE AUTO 0.02 10^3/uL (0.00-0.04); IMMATURE GRAN PERCENT AUTO 0.2 % (0.0-0.4); LYMPHOCYTES ABSOLUTE AUTO 3.19 10^3/uL (1.00-4.00); LYMPHOCYTES PERCENT AUTO 30.4 % (20.0-40.0); MEAN PLATELET VOLUME 10.9 fL (7.4-10.4); MONOCYTES ABSOLUTE AUTO 0.72 10^3/uL (0.10-0.80); MONOCYTES PERCENT AUTO 6.9 % (2.0-8.0); NEUTROPHILS ABSOLUTE AUTO 6.14 10^3/uL (2.50-7.00); NEUTROPHILS PERCENT AUTO 58.3 % (50.0-70.0); PLATELET COUNT,PLT 221 10^3/uL (150-400); RED BLOOD CELL COUNT 5.09 10^6/uL (3.80-5.50); RED CELL DISTRIBUTION WIDTH 12.5 % (11.5-14.5); WHITE BLOOD CELL COUNT,WBC 10.51 10^3/uL (5.00-10.00)
[2024-12-23 20:36] LABS: ALANINE AMINOTRANSFERASE,ALT 53.0 U/L (14-63); ASPARTATE AMNIOTRANSFERASE,AST 52.0 U/L (15-37); BILIRUBIN TOTAL 0.5 mg/dL (0.2-1.0); BLOOD UREA NITROGEN,BUN 15.0 mg/dL (7-18); CARBON DIOXIDE,CO2 36.1 mmol/L (21.0-32.0); CHLORIDE,CL 102.0 mmol/L (98-107); CREATININE 1.0 mg/dL (0.51-1.17); EST CRCL DRUG DOSING (CG) 35.26 mL/min; ESTIMATED GFR 56.0 mL/min (>=60); GLUCOSE RANDOM 127.0 mg/dL (70-140); POTASSIUM,K 3.6 mmol/L (3.5-5.1); PROTEIN TOTAL,TP 7.2 g/dL (6.4-8.2); SODIUM,NA 145.0 mmol/L (136-145)
[2024-12-23 20:44] LABS: INR 1.0 (0.9-1.1); PTT,PARTIAL THROMBOPLSTIN TIME 27.7 SEC (21.6-32.4)
[2024-12-23] MEDS: Iopamidol 755 Mg/ML 100 ML Bottle IV ONE (21:12)
== END 2024-12-23 21:15 ==
LOC: KA.ED 19:23
DX: I63.522 Cerebral infarction due to unspecified occlusion or stenosis of left anterior cerebral artery (principal); I25.10 Atherosclerotic heart disease of native coronary artery without angina pectoris; E78.00 Pure hypercholesterolemia, unspecified; I10 Essential (primary) hypertension; K21.9 Gastro-esophageal reflux disease without esophagitis; E03.9 Hypothyroidism, unspecified; E11.40 Type 2 diabetes mellitus with diabetic neuropathy, unspecified; Z88.5 Allergy status to narcotic agent; Z88.8 Allergy status to other drugs, medicaments and biological substances; Z88.0 Allergy status to penicillin; Z91.040 Latex allergy status; Z91.09 Other allergy status, other than to drugs and biological substances; Z91.048 Other nonmedicinal substance allergy status; Z79.82 Long term (current) use of aspirin; Z79.899 Other long term (current) drug therapy
CPT/HCPCS: 36415; 70450; 70496; 70498; 80053; 82947; 84484; 85025; 85610; 85730; 93010; 99284; 99285; A9270-GY; Q9967